=== PATIENT | male | born 1955 | race Caucasian/White ===

== ENCOUNTER → 2017-08-19 | Outpatient (CLI) | payer OTHER ==
[~2017-08-19] MED LIST: ASPCH81X PO; CITA20TA9 PO; DVN/160 PO; ESCI1TAB10 PO; FLUT0.0529; NEBI2.5T2 PO; OXYM0.056 NAE; ROSU40TA PO
--- NOTE | 2017-08-19 14:10 | DIAGNOSTIC IMAGING REPORT ---
CAROTID DOPPLER NECK ART HISTORY: Aortic stenosis. Atherosclerotic change. AORTIC STENOSIS/PRE OP COMPARISON: None. TECHNIQUE: Real-time, grayscale, and color Doppler sonography of the carotid arteries was performed. Imaging reviewed in the transverse and longitudinal planes. All measurements were calculated based on NASCET criteria. FINDINGS: Antegrade flow is seen in the bilateral vertebral arteries. The brachial pressures are hemodynamically similar. Minimal plaque formation bilaterally The peak systolic velocity within the right ICA is 46. The right systolic ratio is 0.5. The peak systolic velocity within the left ICA is 51. The left systolic ratio is 0.7. IMPRESSION: No hemodynamically significant stenosis seen within the carotid arteries. Minimal plaque formation bilaterally The above report was generated using voice recognition software. It may contain grammatical, syntax or spelling errors. Electronically signed by: Petros Solano M.D. 08/19/2017 2:09 PM Dictated Date/Time: 08/19/2017 2:07 PM
== END | disposition home or self-care (01) ==
LOC: C.ULTRBC 13:14
PROVIDERS: ATTEND Internal Medicine Cardiovascular Disease
DX: Z01.818 Encounter for other preprocedural examination (principal); I35.0 Nonrheumatic aortic (valve) stenosis

== ENCOUNTER → 2017-08-23 | Day surgery (SDC) | payer OTHER ==
[~2017-08-23] VITALS: Ht 180.3 cm; Wt 114.0 kg
[~2017-08-23] MED LIST changes: +ACETAMINOPHEN 325 MG TAB PO PRN; +AMIODARONE HCL INJ 50 MG/ML 3 ML VIAL IV STA; +ATROPINE SULFATE 0.1 MG/ML 5ML SYR IV PRN; +FENTANYL CITRATE INJ 50 MCG/1 ML 2 ML VIAL ONE; +HEPARIN SOD (PORCINE) 1000 UNIT/ML 10 ML VIAL ONE; +LIDOCAINE HCL 1% 20 ML VIAL ONE; +METOPROLOL TARTRATE 1 MG/ML VIAL ONE; +MIDAZOLAM HCL 1 MG/ML 2ML VIAL ONE; +NITROGLYCERIN/D5W 100MCG/ML 20ML SYR ONE; +NiCARDipine HCL INJ 2.5 MG/ML 10 ML AMP ONE; +SODIUM CHLORIDE 0.9% 1000ML 1,000 ML IV SCH; +SODIUM CHLORIDE 0.9% 1000ML 250 ML IV PRN
[2017-08-23 07:15] VITALS: BP 134/87; PULSE 66; TEMP 36.6; O2SAT 97; Ht 180.3 cm; Wt 114.0 kg
--- NOTE | 2017-08-23 08:31 | History & Physical Bridge Note ---
H&P Re-Evaluation Bridge Note: I have examined the patient, reviewed the History & Physical and in the interval since the performance of the History & Physical I have noted the following changes of clinical significance: No changes noted
--- NOTE | 2017-08-23 08:32 | Pre Sedation Assessment ---
Pre Sedation Assessment General Date of Sedation: August 23, 2017. Vital Signs Past 12 Hours Date Time Temp Pulse Resp B/P (MAP) Pulse Ox O2 Delivery O2 Flow Rate FiO2 08/23/17 07:15 36.6 66 16 134/87 (103) 97 Room Air Review Cardiovascular: regular rate, rhythm, + diastolic murmur, + systolic murmur Lungs: chest non-tender Pre-Sedation Airway Assessment Smoking Status: Never Smoker Hx of Sleep Apnea: Yes Short Thick Neck: Yes Thyro-mental Distance: > 3 Finger Breadths Oral Cavity: WNL Mallampati Classification: Class II ASA Classification: Class III NPO Status Date of Last Intake of Fluids: Aug 22, 2017 Time of Last Intake of Fluids: 2199 Date of Last Intake of Solids: Aug 22, 2017 Time of Last Intake of Solids: 2199 Procedure Planning Contraindications for Sedation: None Current Medications Reviewed: Yes Notes The planned sedation has been discussed with the patient. Informed Consent was obtained. I have identified the patient, determined the appropriateness of sedation and have assessed the patient immediately prior to the procedure. All medicine(s) and interventions are by my order.
--- NOTE | 2017-08-23 09:47 | [facility] Post Operative Brief Note ---
Preliminary Procedure Note Procedure Date August 23, 2017. Pre-Procedure Diagnosis Valvular Disease AUC Score 7 Post-Procedure Diagnosis Normal Coronary Arteries Procedure(s) Performed Coronary Angiography, Right Heart Cath, Aortography Assistant Manager/Embalmer Dr. Milton Mckee Service Department Manager(s) Juan Rodgers Estimated Blood Loss Less than 15 cc Medication(s) Fentanyl (12.5 mcg IV), Heparin (5000 units IV), Metoprolol (2.5 mill grams IV 2), Nicardipine (250 mcg intra-arterial after arterial sheath insertion), Versed (1 mg IV), Lidocaine 1% (Local infiltration) Preliminary Findings Right dominant coronary anatomy with large-caliber coronaries Left main short without disease LAD large type III vessel with large paralleling diagonal with minimal luminal irregularities Left circumflex large caliber with large obtuse marginal and minimal luminal irregularities Ramus intermedius moderately large caliber without disease Right coronary artery moderate calibered, dominant in distribution and no disease Moderate aortic enlargement with moderate 3+ aortic insufficiency Heavy calcification of the aortic valve with restricted valve leaflets on fluoroscopy Normal right heart pressures and pulmonary capillary wedge pressure Transient atrial fibrillation Recommendations valve replacement Specimens None Fluids (cc crystalloids) 63 cc Anesthesia Start 838 End 920 Davidson Grant RN Procedural Complication(s) Atrial fibrillation developed during right heart catheterization Disposition Power Plant Engineer Holding/Recovery
--- NOTE | 2017-08-23 09:57 | Discharge Instructions ---
Discharge Instructions Procedure Procedure Date: August 23, 2017. Reason for Visit: Severe Aortic Stenosis *. Discharge Discharge Date: August 23, 2017. Discharge Diagnosis: Bicuspid aortic valve with severe aortic stenosis, moderate aortic insufficiency and no obstructive coronary disease Last Recorded Wt (Kilograms): 114 Anesthesia Post Anesthesia Instructions: If you have had General Anesthesia or IV Sedation: * Do not drive today. * Resume driving when surgeon permits. * Do not make important decisions or sign legal documents today. * Call surgeon for: 1. Temperature elevations greater than 101 degrees F. 2. Uncontrollable pain. 3. Excessive bleeding. 4. Persistent nausea and vomiting. 5. Medication intolerance (nausea, vomiting or rash). * For nausea and vomiting use only clear liquids such as: tea, soda, bouillon until nausea subsides, then gradually increase diet as tolerated. * If you have any concerns or questions, call your surgeon's office. If physician is unavailable and it is an emergency, call 911 or go to the nearest emergency room. Instructions Activity Recommendations: limitations as noted below Recommended Home Diet: resume previous diet Allergies: Coded Allergies: No Known Allergies (Unverified , 08/19/14) Provider Instructions ACTIVITY RECOMMENDATIONS: Excess manipulation of the wrist should be avoided for the next 24-48 hours. * No lifting over 2 pounds (approximately a 1/2 gallon of milk) with the utilized arm for 24 hours. * No strenuous activity such as bowling or tennis for 3 days. * Keep the site of the procedure covered with a bandage for 24 hours. *You may shower the day after the procedure. Do not take a tub bath or submerge the puncture site in water for the next 3 days. *Do not operate any motorized equipment for 3 days. SPECIAL CARE INSTRUCTIONS: The site may be slightly bruised and sore following your procedure. Should any of the following occur, contact the Dr. who performed your procedure. 1. Redness/inflammation, swelling, chills, or fever, or colored drainage at procedure site within 3-7 days after your procedure. 2. Coldness, discoloration, ongoing numbness, severe pain, or swelling. Expect mild tingling of hand and tenderness at the puncture site for up to three days. If this persists beyond three days, or other symptoms develop, notify the Dr. who performed your procedure. BLEEDING: If the procedure site on your wrist begins to bleed, do not panic 1. Place 1 or 2 fingers firmly just slightly above the insertion site to stop the bleeding. You may be able to feel your pulse as you hold pressure. 2. Lift your finger after 5 minutes to see if the bleeding has stopped. 3. Once the bleeding has stopped, gently wipe the wrist area clean with a bandage. * If the bleeding from your wrist does not stop after 10 minutes, or if there is a large amount of bleeding or spurting, call 911 (do not drive yourself to the hospital). SKIN IRRITATION: * You may experience some redness and/or swelling in the area where radiation was administered. If any skin irritation occurs, please contact your family physician. FOLLOW UP VISIT: Keep any scheduled doctor appointments. Follow Up Follow-up with: Dr. Caban and Dr. Jo as scheduled Deshawn Dennis Recommendations: Call your doctor if: * Temperature above 101 degrees * Pain not relieved by pain medicine ordered * There is increased drainage or redness from any incision * You have any unanswered questions or concerns. Your Doctors Instructions noted above were prepared by provider Milton Mckee. Patient Signature Section: Patient Instructions Signature Page Gualberto Holder Patient (or Guardian) Signature/Date: I have read and understand the instructions given to me by my caregivers. Caregiver/RN/Doctor Signature/Date: The above-named patient and/or guardian has received patient instructions on this date. + Original Patient Signature Page (only) stays with chart. Please make copy for patient.
[2017-08-23 12:00] VITALS: BP 126/76; PULSE 65; O2SAT 94
--- NOTE | 2017-08-24 07:40 | CARDIAC CATH REPORT ---
REFERRING PHYSICIAN: Prateek Caban DO. INDICATIONS: Valvular heart disease, congenitally bicuspid aortic valve with mixed aortic stenosis, aortic insufficiency, dilated aortic root. PROCEDURE: Right heart catheterization, coronary and aortic root angiography. BRIEF HISTORY: Patient is a 61-year-old male with a history of congenitally bicuspid aortic valve with progressive calcific disease with mixed aortic stenosis, aortic insufficiency. Degree of aortic stenosis has now reached severe by echocardiographic criteria and patient has been experiencing exertional chest pressure and dyspnea as presenting symptoms. Given progression of disease, he is referred for diagnostic cardiac catheterization in anticipation of surgical valve replacement. ACCESS: Right brachial vein, right radial artery. CATHETERS: A 5-Tajik venous sheath, 5-Tajik Brandon-Ankur catheter, 6-Tajik long glide arterial sheath, 5-Tajik Sugarloaf 4.0, 5-Tajik angled pigtail. CONTRAST: Nonionic x173 mL. INTRAVENOUS FLUIDS: 63 mL normal saline. MEDICATIONS: 1% lidocaine was used for local infiltration of access sites. Patient received 1 mg IV Versed and 12.5 mcg IV fentanyl for sedation. After arterial sheath was inserted, intra-arterial injection of 250 mcg of nicardipine was administered. After central access gained, 5000 units of IV heparin was given. RADIATION EXPOSURE: 5.7 minutes of fluoroscopy, 2108 [place] [id number]. SEDATION: Start time 8:38, end time 9:20. Emergency Specialist, Davidson Grant RN. PROCEDURE NOTES AND COMPLICATIONS: Patient had mechanical induced atrial fibrillation after Brandon-Ankur insertion into the right atrium which persisted to shortly after the completion of the case with spontaneous conversion to sinus. RESULTS: CORONARY ANGIOGRAPHY: Coronary anatomy is right dominant with large caliber coronaries throughout. There are mild luminal irregularities, but no obstructive disease observed. LEFT MAIN: Left main is short and trifurcates to give rise to the left anterior descending, a large ramus intermedius, and the left circumflex. There is no disease in the left main. LEFT ANTERIOR DESCENDING: Left anterior descending is a very large caliber vessel, type 3 in distribution. Gives rise to a small septal and diagonal branch in its proximal third and a large second diagonal branch parallel to the left anterior descending. Within the left anterior descending, there are mild irregularities only. RAMUS INTERMEDIUS: This is a moderately large vessel and was free of disease. LEFT CIRCUMFLEX: Left circumflex is large but nondominant, gives rise to a multi-branching obtuse marginal and a single posterolateral branch along the AV groove. There is no disease in the left circumflex. RIGHT CORONARY ARTERY: The right coronary is large in caliber and gives rise to 2 right ventricular branches in its mid portion. Has a significantly tortuous portion in its mid and acute marginal segments and gives rise to 2 posterior ventricular branches and a posterior descending artery. There are minimal irregularities in the right coronary artery. AORTIC ROOT ANGIOGRAPHY: The aorta is mild to moderately dilated above the sinotubular junction. The aortic valve was noted to be calcified and restricted in leaflet mobility. There is moderate 2-3+ aortic insufficiency. HEMODYNAMICS: Initial right atrial pressure was 2 with a V wave of 5, RV was 30 with an RVEDP of 1. Pulmonary artery pressure was 30/8 with a mean of 19. Pulmonary capillary wedge pressure was mean of 7 with a V wave of 11. Cardiac output by thermal dilution was 6.4 liters per minute and 5.1 liters per minute by Robert equation. Aortic root saturation was 94%, PA saturation was 66%, RA saturation was 66%. Initial aortic root pressure is 107/73. Following completion of the case, final pressure was 112/83 with a mean of 98. FINAL IMPRESSION: 1. Severe calcific aortic stenosis superimposed on bicuspid aortic valve by echocardiography. 2. Large caliber coronaries with right dominance with mild luminal irregularities and no obstruction. 3. Mild to moderately dilated ascending aorta. 4. Moderate 2-3+ aortic insufficiency. 5. Normal right heart pressures and pulmonary capillary wedge pressure. Plan: Referral for cardiothoracic surgery evaluation as planned MTDD
== END | disposition home or self-care (01) ==
LOC: C.CATH 07:07
PROVIDERS: ATTEND Internal Medicine Cardiovascular Disease
DX: I35.2 Nonrheumatic aortic (valve) stenosis with insufficiency (principal); I10 Essential (primary) hypertension; G47.33 Obstructive sleep apnea (adult) (pediatric); E78.5 Hyperlipidemia, unspecified